=== PATIENT | female | born 1940 | race Hispanic/Latino ===

== ENCOUNTER 2019-06-26 12:02 | Emergency (ER) | payer MEDICARE ==
[~2019-06-26] VITALS: Ht 157.5 cm; Wt 99.8 kg
--- OUTSIDE RECORDS SUMMARY | 2019-06-26 12:04 | XMS REPORT ---
Author Author [facility] Address Unknown Phone Unavailable Care Team Providers Care Manager Fleet Name Role Phone Unavailable Unavailable Payers Payer Name Policy Type Policy Number Effective Date Expiration Date Problems This patient has no known problems. Allergies, Adverse Reactions, Alerts Allergy Name Allergy Type Status Severity Reaction(s) Onset Date Inactive Date Treating Clinician Comments No Known Allergies DA Active U 2017-02-16 00:00:00 Medications This patient has no known medications. Results Test Description Test Time Test Comments Text Results Atomic Results Result Comments - XR CHEST 2 V 2019-01-03 11:19:00 FAX: Idania Porras MD [phone] [place]: O St: PRE FAX: Domingo Bonner MD [phone] Name: RACHAEL BOWEN [facility] : 1940 Age/S: 78/F [address] Unit #: [id number] Loc: [place] [address] Phys: Idania Flores MD Acct: [id number] Dis Date: Status: PRE SDC PHONE #: [phone] Exam Date: 01/03/2019 1057 FAX #: [phone] Reason: PRE OP EXAMS: CPT CODE: [id number] XR CHEST 2 V 37001 HISTORY: Preop. COMPARISON: October 21, 2017. AP and lateral view of the chest: No acute infiltrates, effusion or congestion. Cardiomegaly. DJD of the dorsal spine. IMPRESSION: No acute infiltrates, effusion or congestion. at 1119 Reported and signed by: Nate Ram M.D. CC: Idania Flores MD; Domingo Blue MD Technologist: RT Himanshu(Rosemary) Trnscrd Date/Time/By: 01/03/2019 (1119) : By: [email or web address] Orig Print D/T: S: 01/03/2019 (1124) PAGE 1 Signed Report BASIC METABOLIC PANEL 2019-01-03 11:17:00 SODIUM (test code=NA) 136 mmol/L 136-145 POTASSIUM (test code=K) 4.0 mmol/L 3.5-5.1 CHLORIDE (test code=CL) 104.0 mmol/L 98-107 CARBON DIOXIDE (test code=CO2) 28.0 mmol/L 21-32 ANION GAP (test code=GAP) 8.0 10-20 GLUCOSE (test code=GLU) 119 mg/dL 74-106 BLOOD UREA NITROGEN (test code=BUN) 9 mg/dL 7-18 GLOMERULAR FILTRATION RATE (test code=GFR) 60 mL/min >=60 Estimated GFR by using Modified MDRD formula.Chronic kidney disease is defined as either kidney damageor GFR <60 mL/min/1.73 m2 for >3 months. CREATININE (test code=CREAT) 0.90 mg/dL 0.55-1.02 Note change in reference range due to change in reagent. BUN/CREATININE RATIO (test code=BUN/CREA) 10.0 10-20 CALCIUM (test code=CA) 9.0 mg/dL 8.5-10.1 PROTHROMBIN [id number] 10:38:00* Test Item Value Reference Range Comments PROTHROMBIN TIME PATIENT (test code=PTP) 10.7 seconds 9.0-14.0 INTERNATIONAL NORMAL RATIO (test code=INR) 0.9 0.8-1.2 The therapeutic range for oral anticoagulant therapy formost indications is an international normalized ratio (INR)of between 2.0 and 3.0. The recommended therapeutic INRrange for various clinical situations is listed below: Clinical Situation INR range Pulmonary e mbolism treatment (2.0-3.0)Venous thrombosis treatmentVenous thrombosis prophylaxis (high risk surgery)Prevention of systemic embolism from: Acute myocardial infarction Valvular heart disease Atrial fibrillation Mechanical prosthetic heart valves (2.5-3.5) THROMBOPLASTIN TIME [id number] 10:38:00* Test Item Value Reference Range Comments THROMBOPLASTIN TIME PARTIAL (test code=PTT) 31.5 seconds 25.0-36.5 CBC W/AUTO [id number] 10:29:00* Test Item Value Reference Range Comments WHITE BLOOD CELL (test code=WBC) K/mm3 4.5-12.5 RED BLOOD CELL (test code=RBC) mill/mm3 3.7-5.2 HEMOGLOBIN (test code=HGB) 12.8 gram/dL 11.5-15.5 HEMATOCRIT (test code=HCT) 40.9 % 36.0-46.0 MEAN CELL VOLUME (test code=MCV) fL 80-98 MEAN CELL HGB (test code=MCH) picogram 27.0-33.0 MEAN CELL HGB CONCETRATION (test code=MCHC) gram/dL 33.0-36.0 RED CELL DISTRIBUTION WIDTH (test code=RDW) % 11.6-16.2 RED CELL DISTRIBUTION WIDTH SD (test code=RDW-SD) fL 37.0-51.0 PLATELET COUNT (test code=PLT) K/mm3 150-450 MEAN PLATELET VOLUME (test code=MPV) fL 6.7-11.0 NEUTROPHIL % (test code=NT%) % 39.0-69.0 IMMATURE GRANULOCYTE % (test code=IG%) % 0.0-5.0 LYMPHOCYTE % (test code=LY%) % 25.0-55.0 MONOCYTE % (test code=MO%) % 0.0-10.0 EOSINOPHIL % (test code=EO%) % 0.0-5.0 BASOPHIL % (test code=BA%) % 0.0-1.0 NEUTROPHIL # (test code=NT#) K/mm3 1.8-7.7 LYMPHOCYTE # (test code=LY#) K/mm3 1.0-5.0 MONOCYTE # (test code=MO#) K/mm3 0-0.8 EOSINOPHIL # (test code=EO#) K/mm3 0.0-0.5 BASOPHIL # (test code=BA#) K/mm3 0.0-0.2 CBC W/AUTO [id number] 10:29:00* Test Item Value Reference Range Comments WHITE BLOOD CELL (test code=WBC) 8.4 K/mm3 4.5-12.5 RED BLOOD CELL (test code=RBC) 4.64 mill/mm3 3.7-5.2 HEMOGLOBIN (test code=HGB) 12.8 gram/dL 11.5-15.5 HEMATOCRIT (test code=HCT) 40.9 % 36.0-46.0 MEAN CELL VOLUME (test code=MCV) 88.1 fL 80-98 MEAN CELL HGB (test code=MCH) 27.6 picogram 27.0-33.0 MEAN CELL HGB CONCETRATION (test code=MCHC) 31.3 gram/dL 33.0-36.0 RED CELL DISTRIBUTION WIDTH (test code=RDW) 14.5 % 11.6-16.2 RED CELL DISTRIBUTION WIDTH SD (test code=RDW-SD) 46.4 fL 37.0-51.0 PLATELET COUNT (test code=PLT) 301 K/mm3 150-450 MEAN PLATELET VOLUME (test code=MPV) 9.3 fL 6.7-11.0 NEUTROPHIL % (test code=NT%) 67.0 % 39.0-69.0 IMMATURE GRANULOCYTE % (test code=IG%) 0.4 % 0.0-5.0 LYMPHOCYTE % (test code=LY%) 25.4 % 25.0-55.0 MONOCYTE % (test code=MO%) 3.9 % 0.0-10.0 EOSINOPHIL % (test code=EO%) 2.3 % 0.0-5.0 BASOPHIL % (test code=BA%) 1.0 % 0.0-1.0 NUCLEATED RBC % (test code=NRBC%) 0.0 % 0-0 NEUTROPHIL # (test code=NT#) 5.63 K/mm3 1.8-7.7 IMMATURE GRANULOCYTE # (test code=IG#) 0.03 x10 3/uL 0-0.03 LYMPHOCYTE # (test code=LY#) 2.13 K/mm3 1.0-5.0 MONOCYTE # (test code=MO#) 0.33 K/mm3 0-0.8 EOSINOPHIL # (test code=EO#) 0.19 K/mm3 0.0-0.5 BASOPHIL # (test code=BA#) 0.08 K/mm3 0.0-0.2 NUCLEATED RBC # (test code=NRBC#) 0.00 K/mm3 0.0-0.1 MANUAL DIFF REQUIRED (test code=MDIFF) NO - XR CHEST 2 [id number] 15:57:00 FAX: Gabriel Perez MD [phone] [place]: O St: REG FAX: Domingo Bonner MD [phone] Name: RACHAEL BOWEN [facility] : 1940 Age/S: 78/F [address] [facility] Unit #: [id number] Loc: [place] [address] Phys: Gabriel Patel MD Acct: [id number] Dis Date: Status: REG CLI PHONE #: [phone] Exam Date: 12/06/2018 1552 FAX #: [phone] Reason: R06.02 EXAMS: CPT CODE: [id number] XR CHEST 2 V 15242 REASON FOR EXAM: R06.02 Exam Order Date: 12/06/2018 3:37 PM Ordering Burton: Gabriel Patel MD PROCEDURE: - XR CHEST 2 V COMPARISON: 03/21/2018 FINDINGS: PA and lateral views of the chest show clear lungs without evidence of consolidation. No evidence of effusion. The heart size is minimally enlarged. Pulmonary vasculatures are unremarkable. The osseous structures are grossly intact. IMPRESSION: No active disease. at 1552 Reported and signed by: Mahendra Dempsey M.D. CC: Gabriel Patel MD; Domingo Blue MD Technologist: RT Himanshu(R) Trnscrd Date/Time/By: 12/06/2018 (7510) : By: Homa Orig Print D/T: S: 12/06/2018 (2200) PAGE 1 Signed Report
[2019-06-26 13:12] LABS: BILIRUBIN,URINE NEGATIVE (NEGATIVE); CLARITY,URINE SL CLOUDY (CLEAR); COLOR,URINE YELLOW (YELLOW); KETONES,URINE NEGATIVE (NEGATIVE); LEUKOCYTE ESTERASE ,URINE LARGE (NEGATIVE); NITRITE,URINE NEGATIVE (NEGATIVE); PROTEIN,URINE DIPSTICK NEGATIVE (NEGATIVE); URINE UROBILINOGEN 0.2 mg/dL (0.2 - 1)
[2019-06-26 13:36] LABS: WBC,URINE (MAN) >50 /HPF (0-5)
[2019-06-26 13:37] LABS: BACTERIA,URINE MODERATE /HPF; EPITHELIAL CELLS,URINE FEW /LPF
[2019-06-26] MEDS ORDERED: CEFTRIAXONE SOD 1 GM/NS 50 ML 50 ML IV ONE (14:00)
[2019-06-26 14:01] LABS: BASOPHILS # (AUTO) 0.1 (0.0-0.1); BASOPHILS % 0.8 % (0.0-1.0); EOSINOPHILS # (AUTO) 0.1 (0.0-0.4); EOSINOPHILS % 1.4 % (0.0-6.0); HEMATOCRIT 38.1 % (34.2-44.1); HEMOGLOBIN 12.1 g/dL (12.0-16.0); LYMPHOCYTES # (AUTO) 2.1 (1.0-3.2); LYMPHOCYTES % 32.9 % (18.0-39.1); MEAN CORPUSCULAR HEMOGLOBIN 26.9 pg (28-32); MEAN CORPUSCULAR HGB CONC 31.8 g/dL (31-35); MEAN CORPUSCULAR VOLUME 84.9 fL (81-99); MONOCYTES # (AUTO) 0.4 (0.2-0.8); MONOCYTES % 5.6 % (4.4-11.3); NEUTROPHILS # (AUTO) 3.8 (2.1-6.9); NEUTROPHILS % 58.8 % (38.7-80.0); PLATELET COUNT 289 x10e3/uL (140-360); RED BLOOD COUNT 4.49 x10e6/uL (3.6-5.1); RED CELL DISTRIBUTION WIDTH 14.6 % (11.7-14.4)
[2019-06-26 14:19] LABS: ALBUMIN/GLOBULIN RATIO 1.1 (0.8-2.0); CALCIUM 9.9 mg/dL (8.4-10.2); CREATININE, SERUM 1.04 mg/dL (0.57-1.11)
[2019-06-26 14:50] VITALS: BP 131/77
== END 2019-06-26 14:54 | disposition home or self-care (01) ==
LOC: ER 12:02
DX: N30.01 Acute cystitis with hematuria (principal); I10 Essential (primary) hypertension; K21.9 Gastro-esophageal reflux disease without esophagitis; E78.5 Hyperlipidemia, unspecified; Z83.3 Family history of diabetes mellitus; Z82.49 Family history of ischemic heart disease and other diseases of the circulatory system
CPT/HCPCS: 36415; 80053; 81001; 85025; 99283; J0696

== ENCOUNTER 2023-03-23 18:53 | Inpatient (IN) | payer MEDICARE ==
[~2023-03-23] VITALS: Ht 157.5 cm; Wt 99.8 kg
[2023-03-23] MEDS ORDERED: KETOROLAC TROMETHAMINE 30 MG/ML VIAL IV STA (19:36)
[2023-03-23] MEDS ORDERED: SODIUM CHLORIDE FLUSH 10 ML SYR IV PRN (19:45)
[2023-03-23 19:49] LABS: BASOPHILS % 0.5 % (0.0-1.0); EOSINOPHILS # (AUTO) 0.1 (0.0-0.4); EOSINOPHILS % 1.5 % (0.0-6.0); HEMATOCRIT 30.5 % (34.2-44.1); HEMOGLOBIN 9.3 g/dL (12.0-16.0); LYMPHOCYTES # (AUTO) 2.2 (1.0-3.2); LYMPHOCYTES % 27.3 % (18.0-39.1); MEAN CORPUSCULAR HGB CONC 30.5 g/dL (31-35); MEAN CORPUSCULAR VOLUME 65.7 fL (81-99); MONOCYTES # (AUTO) 0.5 (0.2-0.8); NEUTROPHILS # (AUTO) 5.1 (2.1-6.9); NEUTROPHILS % 64.4 % (38.7-80.0); PLATELET COUNT 281 x10e3/uL (140-360); RED BLOOD COUNT 4.64 x10e6/uL (3.6-5.1); RED CELL DISTRIBUTION WIDTH 19.7 % (11.7-14.4)
[2023-03-23 20:04] LABS: ALBUMIN 3.8 g/dL (3.5-5.0); ALBUMIN/GLOBULIN RATIO 1.3 (0.8-2.0); ANION GAP 13.4 mmol/L (8-16); CALCIUM 9.2 mg/dL (8.4-10.2); CREATININE, SERUM 0.79 mg/dL (0.57-1.11); POTASSIUM 3.4 mmol/L (3.5-5.1)
[2023-03-23] MEDS ORDERED: ONDANSETRON HCL INJ 2MG/ML 2ML 2 MG/ML VIAL IV STA (21:47)
[2023-03-23] MEDS ORDERED: ASPIRIN 81 MG CHEW TAB PO ONE (22:00)
[2023-03-23] MEDS ORDERED: SODIUM CHLORIDE FLUSH 10 ML SYR INJ PRN (22:00)
[2023-03-23] MEDS ORDERED: Morphine 2mg Syringe 2 MG/ML SYR IV ONE (22:00)
[2023-03-23 22:50] VITALS: BP 176/56; PULSE 56; RESP 15; TEMP 97.6; O2SAT 100
[2023-03-23 23:30] VITALS: BP 176/56; PULSE 56; RESP 15; TEMP 97.6; O2SAT 100
[2023-03-24] MEDS: HYDRALAZINE HCL 20 MG/ML VIAL IV PRN (01:32)
[2023-03-24] MEDS: Morphine 4mg INJECTION 4 MG/ML INJ IV PRN ×3 (02:11→17:22)
[2023-03-24] MEDS: ONDANSETRON HCL INJ 2MG/ML 2ML 2 MG/ML VIAL IV PRN ×3 (02:11→17:21)
[2023-03-24] MEDS ORDERED: HYDROCODON-ACE1 EAC9 PO (04:05)
[2023-03-24] MEDS ORDERED: ASPIRIN EC81 MG PO (04:05)
[2023-03-24] MEDS ORDERED: HYDROCHLOROTHIA25 MG PO (04:05)
[2023-03-24] MEDS ORDERED: DORZOLAMIDE-TIM10 ML OP (04:05)
[2023-03-24] MEDS ORDERED: OMEPRAZOLE40 MG PO (04:05)
[2023-03-24] MEDS ORDERED: HEMATINIC-FOLI1 EACH PO (04:05)
[2023-03-24] MEDS ORDERED: PRAVASTATIN SOD20 MG PO (04:05)
[2023-03-24] MEDS ORDERED: CLOPIDOGREL75 MG PO (04:05)
[2023-03-24] MEDS ORDERED: LUMIGAN2.5 M1 OP (04:05)
[2023-03-24] MEDS ORDERED: METOPROLOL SUCC25 MG PO (04:05)
[2023-03-24 05:56] LABS: BASOPHILS % 0.4 % (0.0-1.0); EOSINOPHILS # (AUTO) 0.2 (0.0-0.4); EOSINOPHILS % 1.9 % (0.0-6.0); HEMATOCRIT 29.8 % (34.2-44.1); HEMOGLOBIN 9.1 g/dL (12.0-16.0); LYMPHOCYTES # (AUTO) 2.4 (1.0-3.2); LYMPHOCYTES % 25.2 % (18.0-39.1); MEAN CORPUSCULAR HEMOGLOBIN 20.3 pg (28-32); MEAN CORPUSCULAR HGB CONC 30.5 g/dL (31-35); MEAN CORPUSCULAR VOLUME 66.5 fL (81-99); MONOCYTES # (AUTO) 0.6 (0.2-0.8); MONOCYTES % 5.9 % (4.4-11.3); NEUTROPHILS # (AUTO) 6.2 (2.1-6.9); NEUTROPHILS % 66.3 % (38.7-80.0); PLATELET COUNT 273 x10e3/uL (140-360); RED BLOOD COUNT 4.48 x10e6/uL (3.6-5.1); RED CELL DISTRIBUTION WIDTH 19.3 % (11.7-14.4)
[2023-03-24 06:21] LABS: ALBUMIN 3.4 g/dL (3.5-5.0); ALBUMIN/GLOBULIN RATIO 1.3 (0.8-2.0); ANION GAP 13.2 mmol/L (8-16); CALCIUM 8.8 mg/dL (8.4-10.2); CREATININE, SERUM 0.79 mg/dL (0.57-1.11); POTASSIUM 3.2 mmol/L (3.5-5.1)
[2023-03-24 07:37] VITALS: BP 153/59; PULSE 61; RESP 21; TEMP 98.1; O2SAT 100
[2023-03-24] MEDS: HYDROCODONE/APAP 5MG-325MG TAB PO PRN (08:15)
[2023-03-24] MEDS: CLOPIDOGREL BISULFATE 75 MG TAB PO SCH (08:16)
[2023-03-24] MEDS: PANTOPRAZOLE SOD 40 MG TABEC PO SCH (08:16)
[2023-03-24] MEDS: HYDROCHLOROTHIAZIDE 25 MG TAB PO SCH (08:24)
[2023-03-24 08:55] VITALS: BP 153/51; PULSE 62; RESP 21; TEMP 98.1; O2SAT 100
[2023-03-24] MEDS: DORZOLAMIDE/TIMOLOL (OPTH SOL) 10 ML DRPETTE OP SCH ×2 (09:00→17:00)
[2023-03-24] MEDS ORDERED: METOPROLOL SUCCINATE 25 MG TAB XL PO SCH (09:00)
[2023-03-24] MEDS ORDERED: ASPIRIN 325 MG TAB EC PO SCH (09:00)
[2023-03-24] MEDS ORDERED: ASPIRIN 81 MG ENTERIC COATED PO SCH (09:00)
[2023-03-24] MEDS ORDERED: POTASSIUM CHLORIDE 20 MEQ TAB CR PO ONE (10:30)
[2023-03-24] MEDS ORDERED: IOPAMIDOL 370 MG/ML 100 ML INFUS..BTL INJ ONE (10:45)
[2023-03-24] MEDS ORDERED: HYDROCODONE/APAP 10MG-325MG TAB PO SCH (12:00)
[2023-03-24 12:55] VITALS: BP 154/57; PULSE 63; RESP 16; TEMP 98.1; O2SAT 95
[2023-03-24 15:32] VITALS: BP 147/55; PULSE 59; RESP 17; TEMP 98.1; O2SAT 99
[2023-03-24 20:33] VITALS: BP 138/57; PULSE 64; RESP 17; TEMP 98; O2SAT 97
[2023-03-24 21:00] VITALS: BP 138/57; PULSE 64; RESP 17; TEMP 98; O2SAT 97
[2023-03-24] MEDS: PRAVASTATIN 20 MG TAB PO SCH (21:03)
[2023-03-24] MEDS: BIMATOPROST(OPTH) 2.5 ML BOTTLE OP SCH (21:03)
[2023-03-25] VITALS (8 sets, daily range): BP systolic 137–193; BP diastolic 56–77; PULSE 64–79; RESP 17–21; TEMP 97.5–98.3; O2SAT 98–99
[2023-03-25] MEDS: Morphine 4mg INJECTION 4 MG/ML INJ IV PRN ×2 (00:24→08:41)
[2023-03-25 08:14] LABS: ANION GAP 12.4 mmol/L (8-16); CALCIUM 8.6 mg/dL (8.4-10.2); CREATININE, SERUM 0.75 mg/dL (0.57-1.11); POTASSIUM 4.4 mmol/L (3.5-5.1)
[2023-03-25] MEDS: PANTOPRAZOLE SOD 40 MG TABEC PO SCH (08:42)
[2023-03-25] MEDS: ONDANSETRON HCL INJ 2MG/ML 2ML 2 MG/ML VIAL IV PRN (08:42)
[2023-03-25] MEDS: CLOPIDOGREL BISULFATE 75 MG TAB PO SCH (08:42)
[2023-03-25] MEDS: ASPIRIN 81 MG CHEW TAB PO SCH (08:42)
[2023-03-25] MEDS: METOPROLOL SUCCINATE 25 MG TAB XL PO SCH (08:42)
[2023-03-25] MEDS: DORZOLAMIDE/TIMOLOL (OPTH SOL) 10 ML DRPETTE OP SCH ×2 (08:43→16:51)
[2023-03-25] MEDS: HYDROCHLOROTHIAZIDE 25 MG TAB PO SCH (08:43)
[2023-03-25] MEDS ORDERED: IRON SUCROSE 100 MG in SODIUM CHLORIDE 0.9% 100 ML IV SCH (09:00)
[2023-03-25] MEDS: FERROUS SULFATE 325 MG TAB PO SCH (10:35)
[2023-03-25] MEDS: HYDROCODONE/APAP 5MG-325MG TAB PO PRN ×2 (16:51→20:55)
[2023-03-25] MEDS: PRAVASTATIN 20 MG TAB PO SCH (20:55)
[2023-03-25] MEDS: HYDRALAZINE HCL 20 MG/ML VIAL IV PRN (20:56)
[2023-03-25] MEDS: BIMATOPROST(OPTH) 2.5 ML BOTTLE OP SCH (21:05)
[2023-03-26 00:09] VITALS: BP 155/72; PULSE 78; RESP 17; TEMP 98.2; O2SAT 97
[2023-03-26] MEDS: HYDROCODONE/APAP 5MG-325MG TAB PO PRN ×3 (01:58→12:55)
[2023-03-26 04:30] VITALS: BP 153/67; PULSE 69; RESP 17; TEMP 98.5; O2SAT 99
[2023-03-26 07:56] VITALS: BP_SYST 167; BP_SYST 169; BP_DIAS 64; BP_DIAS 68; PULSE 77; RESP 16; TEMP 97.8; O2SAT 100
[2023-03-26] MEDS: DORZOLAMIDE/TIMOLOL (OPTH SOL) 10 ML DRPETTE OP SCH (08:09)
[2023-03-26] MEDS: ASPIRIN 81 MG CHEW TAB PO SCH (08:11)
[2023-03-26] MEDS: METOPROLOL SUCCINATE 25 MG TAB XL PO SCH (08:12)
[2023-03-26] MEDS: PANTOPRAZOLE SOD 40 MG TABEC PO SCH (08:12)
[2023-03-26] MEDS: HYDROCHLOROTHIAZIDE 25 MG TAB PO SCH (08:12)
[2023-03-26] MEDS: CLOPIDOGREL BISULFATE 75 MG TAB PO SCH (08:12)
[2023-03-26] MEDS: FERROUS SULFATE 325 MG TAB PO SCH (08:13)
[2023-03-26 09:23] VITALS: BP 169/64; PULSE 77; RESP 16; TEMP 97.8; O2SAT 100
[2023-03-26 11:26] VITALS: BP 134/54; PULSE 67; RESP 16; TEMP 98; O2SAT 99
[2023-03-26] MEDS ORDERED: NAPROXEN250 MG PO (11:55)
[2023-03-26] MEDS ORDERED: ONDANSETRON HCL 4 MG ORAL DISINTEGRATING TAB PO PRN (13:30)
[2023-03-26] MEDS ORDERED: NAPROXEN 250 MG TAB PO SCH (17:00)
== END 2023-03-26 14:51 | disposition home or self-care (01) | DRG 552 ==
LOC: ER 19:09 → ERHOLD 21:58 → MED/SURG2 22:56 → OBSVTOIN 03-24 07:52
PROVIDERS: ADMIT Internal Medicine; ATTEND Internal Medicine
DX: M54.9 Dorsalgia, unspecified (principal); R07.89 Other chest pain; I25.10 Atherosclerotic heart disease of native coronary artery without angina pectoris; I10 Essential (primary) hypertension; K21.9 Gastro-esophageal reflux disease without esophagitis; E78.5 Hyperlipidemia, unspecified; I35.0 Nonrheumatic aortic (valve) stenosis; D50.9 Iron deficiency anemia, unspecified; Z86.711 Personal history of pulmonary embolism; Z20.822 Contact with and (suspected) exposure to COVID-19; Z85.028 Personal history of other malignant neoplasm of stomach; Z95.2 Presence of prosthetic heart valve; Z79.82 Long term (current) use of aspirin; Z90.49 Acquired absence of other specified parts of digestive tract; Z79.02 Long term (current) use of antithrombotics/antiplatelets; Z95.5 Presence of coronary angioplasty implant and graft; Z92.21 Personal history of antineoplastic chemotherapy
CPT/HCPCS: 0223U; 36415; 71045; 71260; 74177; 80048; 80053; 82550; 82728; 83880; 84484; 85025; 85379; 93005; 94760; 99284; G0378; J1885; J2270; J2405; Q9967